=== PATIENT | female | born 1945 | race Two or more races ===

== ENCOUNTER 2022-12-06 09:17 | Day surgery (SDC) | payer OTHER ==
[~2022-12-06] VITALS: Ht 152.4 cm; Wt 90.3 kg
[~2022-12-06 09:17] MED LIST: ALLOPURINOL300 MG PO; ATACAND32 MG PO; DAFLONEX-XL 11300 MG PO; SYNTHROID112 MCG PO; VITAMIN D-40010 MCG PO; ZETIA10 MG PO; [UNRECOGNIZED DRUG - OTHER] PO
== END 2022-12-06 18:35 | disposition home or self-care (01) ==
LOC: CIR.AMB 09:17
PROVIDERS: ATTEND Orthopaedic Surgery
DX: M75.121 Complete rotator cuff tear or rupture of right shoulder, not specified as traumatic (principal); M75.21 Bicipital tendinitis, right shoulder; M24.111 Other articular cartilage disorders, right shoulder; Z20.822 Contact with and (suspected) exposure to COVID-19; Z91.041 Radiographic dye allergy status; Z91.013 Allergy to seafood; Z88.6 Allergy status to analgesic agent; I10 Essential (primary) hypertension; E78.49 Other hyperlipidemia; E03.9 Hypothyroidism, unspecified